=== PATIENT | female | born 1975 | race Caucasian/White ===

== ENCOUNTER 2018-09-30 02:50 | Emergency (ER) | payer BC ==
[~2018-09-30] VITALS: Ht 157.5 cm; Wt 99.8 kg
--- OUTSIDE RECORDS SUMMARY | 2018-09-30 02:56 | XMS REPORT | Continuity of Care Document ---
Author Organization Unknown Address Unknown Allergies There is no data. Medications There is no data. Problems Date Dx Coded Attending Type Code Diagnosis Diagnosed By 05/08/2013 ALEX BARCLAY DO V05.3 HEP B (ADULT) DX 05/08/2013 ALEX BARCLAY DO V05.4 VARICELLA DX 05/08/2013 ALEX BARCLAY DO V06.1 TDAP DX 07/15/2015 LULY LOPEZ DO S Ot 625.9 07/15/2015 LISSY LOPEZ DOLINE S Ot 626.9 05/16/2017 LISSY LOPEZ DOLINE S Ot 625.9 FEM GENITAL SYMPTOMS NOS 05/16/2017 LISSY LOPEZ DOLINE S Ot 626.9 MENSTRUAL DISORDER NOS Procedures There is no data. Results There is no data. Encounters ACCT No. Visit Date/Time Discharge Status Pt. Type Provider Facility Loc./Unit Complaint 06/17/19 09/12/2018 10:03:22 09/12/2018 23:59:59 CLS Outpatient [id number] 2017 15:15:00 2017 23:59:59 CLS Preadmit TRAVIS LOPEZ DOQUELINE S [facility] RAD SCREENING [id number] 12/04/2012 14:13:00 12/04/2012 23:59:59 CLS Outpatient TRAVIS LOPEZ DOQUELINE S [facility] RAD PELVIC PAIN,ABN UTERINE BLEEDING [id number] 05/08/2013 09:56:00 05/08/2013 23:59:59 CLS Outpatient ALEX BARCLAY DO
[2018-09-30] MEDS ORDERED: RT-ALBUTEROL/IPRATROPIUM 3 ML (DUONEB) VIAL INH ONE (03:15)
[2018-09-30] MEDS ORDERED: BENZONATATE 100 MG (TESSALON) CAPSULE PO ONE (03:45)
--- NOTE | 2018-09-30 03:48 | ED Cough/URI ---
General Chief Complaint: Cough/Cold/Flu Symptoms Stated Complaint: COUGH, DRAINAGE Nursing Triage Note: Pt complaining of a cough that has gotten worse over the past couple of days. Pt also has nasal drainage Sepsis Screen: No Definite Risk Source: patient Exam Limitations: no limitations History of Present Illness Date Seen by Provider: September 30, 2018 Time Seen by Provider: 03:00 Initial Comments This 43-year-old woman presents to the emergency room with complaints of nonstop worsening cough and shortness of breath. She also has had some posttussive emesis. Symptoms started about 3 weeks ago when she had some sore throat and cough. She started taking a course of steroids and antibiotics but did not finish them because she was feeling better. She stopped taking them about 10 days ago. In recent days she has had increasing cough and postnasal drainage. She used her son's nebulizer with minimal improvement. She continues to smoke. She is afebrile. Allergies and Home Medications Allergies Coded Allergies: No Known Drug Allergies (Unverified , 09/30/18) Home Medications Amoxicillin 500 Mg Capsule, 1,000 MG PO TID Prescribed by: KATIE ROSE on 09/30/18 0349 Benzonatate 200 Mg Capsule, 200 MG PO TID Prescribed by: KATIE ROSE on 09/30/18 0349 Fluticasone Propionate 9.9 Ml [place].susp, 2 SPRAY NSEACH BID 2 SPRAYS PER NOSTRIL DAILY X 2 DAYS THEN 1 SPRAY DAILY Prescribed by: KATIE ROSE on 09/30/18 0349 Prednisone 20 Mg Tab, 20 MG PO BID Prescribed by: KATIE ROSE on 09/30/18 0349 Patient Home Medication List Home Medication List Reviewed: Yes Review of Systems Review of Systems Constitutional: no symptoms reported EENTM: see HPI Respiratory: see HPI Cardiovascular: no symptoms reported Gastrointestinal: see HPI : No Musculoskeletal: no symptoms reported Skin: no symptoms reported Psychiatric/Neurological: No Symptoms Reported Hematologic/Lymphatic: No Symptoms Reported Past Cxyiazz-Hzkxzf-Mcewpc Hx Past Med/Social Hx: Reviewed Nursing Past Med/Soc Hx Patient Social History Alcohol Use: Denies Use Recreational Drug Use: No Smoking Status: Current Everyday Smoker 2nd Hand Smoke Exposure: No Recent Foreign Travel: No Contact w/Someone Who Travel: No Recent Infectious Disease Expo: No Recent Hopitalizations: No Seasonal Allergies Seasonal Allergies: No Past Medical History Surgeries: No Respiratory: No Cardiac: No Neurological: No Genitourinary: No Gastrointestinal: No Musculoskeletal: No Endocrine: No HEENT: No Cancer: No Psychosocial: No Integumentary: No Blood Disorders: No Physical Exam Vital Signs - First Documented 09/30/18 02:58 Temp 97.0 Pulse 97 Resp 18 B/P (MAP) 138/84 (102) Pulse Ox 99 O2 Delivery Room Air Capillary Refill : Less Than 3 Seconds Height: 5'2.00" Weight: 220lbs. oz. 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, no motor/sensory deficits, alert, normal mood/affect, oriented x 3 Skin: normal color, warm/dry Progress/Results/Core Measures Suspected Sepsis Recent Fever Within 48 Hours: No Infection Criteria Present: Suspected New Infection New/Unexplained Altered Menta: No Sepsis Screen: No Definite Risk SIRS Temperature:97.0 Pulse: 97 Respiratory Rate: 18 Blood Pressure 138 /84 Mean: 102 Results/Orders My Orders Orders - KATIE MATIAS MD Albuterol/Ipra Inhalation Soln (Duoneb I (09/30/18 03:15) Svn Small Volume Nebulizer (09/30/18 03:06) Benzonatate Capsule (Tessalon Perles) (09/30/18 03:45) Medications Given in ED Current Medications Medications Dose Ordered Sig/Crystal Route Start Time Stop Time Status Last Admin Dose Admin Albuterol/ Ipratropium 3 ml ONCE ONCE INH 09/30/18 03:15 09/30/18 03:16 DC 09/30/18 03:14 3 ML Benzonatate 200 mg ONCE ONCE PO 09/30/18 03:45 09/30/18 03:46 DC 09/30/18 03:45 200 MG Vital Signs/I&O 5/09/30/18 09/30/18 02:58 03:15 04:00 Temp 97.0 Pulse 97 97 Resp 18 18 B/P (MAP) 138/84 (102) 138/84 (102) Pulse Ox 99 98 99 O2 Delivery Room Air Room Air Room Air Capillary Refill : Less Than 3 Seconds Blood Pressure Mean: 102 Progress Note : Progress Note Patient still had significant cough after nebulizer treatment. She was given a dose of Tessalon Perles and prescriptions. I recommended that she discontinue smoking. See discharge instructions. Departure Impression Primary Impression: Cough Additional Impression: Post-nasal drainage Disposition: HOME, SELF-CARE Condition: Improved Departure-Patient Inst. Decision time for Depature: 03:43 Referrals: LULY LOPEZ DO (PCP/Family) Primary Care Physician Patient Instructions: Sinusitis, Adult (DC) Add. Discharge Instructions: Stop smoking immediately and completely. Do not substitute with vapor products. Please seek assistance from your primary care provider if you're not able to quit smoking on your own. Complete the antibiotics you have at home and then start the new prescription provided today. Complete the 4 days of prednisone and continue with the nasal steroid spray continuously for the next several weeks. Follow-up with your primary care provider in about a week. Return to care if you have worsening symptoms. If the cough suppressant (Tessalon Perles) worked well for you after your ER visit, fill the prescription provided. You may use upyy-zas-nqqwgpa antihistamine such as Claritin (loratadine) or Zyrtec (cetirizine) for allergy symptoms such as runny nose, no watery and itchy eyes, sneezing, etc. All discharge instructions reviewed with patient and/or family. Voiced understanding. Scripts Fluticasone Propionate (Flonase Allergy Relief) 9.9 Ml Mood[place].susp 2 SPRAY NSEACH BID, #1 EACH 1 Refill 2 SPRAYS PER NOSTRIL DAILY X 2 DAYS THEN 1 SPRAY DAILY Prov: KATIE MATIAS MD 09/30/18 Amoxicillin (Amoxicillin) 500 Mg Capsule 1000 MG PO TID, #42 CAP 0 Refills Prov: KATIE MATIAS MD 09/30/18 Prednisone (Prednisone) 20 Mg Tab 20 MG PO BID, #8 TAB 0 Refills Prov: KATIE MATIAS MD 09/30/18 Benzonatate (Benzonatate) 200 Mg Capsule 200 MG PO TID, #20 CAP Prov: KATIE MATIAS MD 09/30/18 Copy Copies To 1: LUYL LOPEZ JOSHUA T MD September 30, 2018 03:48
[2018-09-30] MEDS ORDERED: FLUT9.9S NSEACH (03:49)
[2018-09-30] MEDS ORDERED: BENZ200C51 PO (03:49)
[2018-09-30] MEDS ORDERED: PRD20T PO (03:49)
[2018-09-30] MEDS ORDERED: AMOX500C2 PO (03:49)
[2018-09-30 04:00] VITALS: BP 138/84
== END 2018-09-30 04:01 | disposition home or self-care (01) ==
LOC: EDUNIT# 02:50 → ER 02:53
DX: R05 Cough (principal); R09.82 Postnasal drip; F17.200 Nicotine dependence, unspecified, uncomplicated; Z79.52 Long term (current) use of systemic steroids; Z79.51 Long term (current) use of inhaled steroids
CPT/HCPCS: 94640

== ENCOUNTER 2020-08-03 19:56 | Emergency (ER) | payer OTHER ==
[~2020-08-03 19:56] MED LIST: AMOX500C2 PO; BENZ200C51 PO; FLUT9.9S NSEACH; PRD20T PO
[2020-08-03] MEDS ORDERED: ACETAMINOPHEN 325 MG TABLET PO STA (20:27)
[2020-08-03 20:32] LABS: BILIRUBIN,URINE NEGATIVE (NEGATIVE); CLARITY,URINE CLEAR; COLOR,URINE YELLOW; GLUCOSE, URINE (UA) NEGATIVE (NEGATIVE); KETONES,URINE 2+ (NEGATIVE); LEUKOCYTE ESTERASE ,URINE NEGATIVE (NEGATIVE); NITRITE,URINE NEGATIVE (NEGATIVE); PROTEIN,URINE NEGATIVE (NEGATIVE)
[2020-08-03] MEDS ORDERED: CYCLOBENZAPRINE 10 MG (FLEXERIL) TAB PO STA (20:38)
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
[2020-08-03 20:48] LABS: BACTERIA,URINE TRACE /HPF
[2020-08-03 20:51] LABS: AMORPHOUS SEDIMENT,UR FEW AMOR URATES /LPF; RBC,URINE 0-2 /HPF; WBC,URINE 0-2 /HPF
[2020-08-03] MEDS ORDERED: CYCLOBENZAPRINE 10 MG (FLEXERIL) TAB ONE (20:57)
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
[2020-08-03 22:28] VITALS: BP 166/100
== END 2020-08-03 22:30 | disposition home or self-care (01) ==
LOC: EDUNIT# 19:56 → ER 19:58
DX: S06.0X0A Concussion without loss of consciousness, initial encounter (principal); S33.5XXA Sprain of ligaments of lumbar spine, initial encounter; S63.501A Unspecified sprain of right wrist, initial encounter; S80.01XA Contusion of right knee, initial encounter; M25.571 Pain in right ankle and joints of right foot; M54.2 Cervicalgia; R40.2360 Coma scale, best motor response, obeys commands, unspecified time; R40.2140 Coma scale, eyes open, spontaneous, unspecified time; R40.2250 Coma scale, best verbal response, oriented, unspecified time; Z79.51 Long term (current) use of inhaled steroids; Z79.52 Long term (current) use of systemic steroids; V49.40XA Driver injured in collision with unspecified motor vehicles in traffic accident, initial encounter
CPT/HCPCS: 70450; 72125; 73562; 73700; 81000; 84703

== ENCOUNTER → 2020-08-09 | Outpatient (CLI) | payer OTHER ==
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
== END ==
LOC: RAD 16:38
PROVIDERS: ATTEND Family Medicine
DX: M25.571 Pain in right ankle and joints of right foot (principal); M25.531 Pain in right wrist
CPT/HCPCS: 73110; 73610

== ENCOUNTER 2020-09-18 12:48 | Emergency (ER) | payer SELFPAY ==
[~2020-09-18] VITALS: Ht 157.4 cm; Wt 100.0 kg
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
[2020-09-18 13:25] LABS: BASOPHILS # (AUTO) 0.1 10^3/uL (0.0-0.1); BASOPHILS % (AUTO) 1 % (0-10); EOSINOPHILS # (AUTO) 0.2 10^3/uL (0.0-0.3); EOSINOPHILS % (AUTO) 3 % (0-10); HEMATOCRIT 40 % (35-52); HEMOGLOBIN 13.6 g/dL (11.5-16.0); LYMPHOCYTES # (AUTO) 1.4 10^3/uL (1.0-4.0); LYMPHOCYTES % (AUTO) 23 % (12-44); MEAN CORPUSCULAR HEMOGLOBIN 33 pg (25-34); MEAN CORPUSCULAR HGB CONC 34 g/dL (32-36); MEAN CORPUSCULAR VOLUME 96 fL (80-99); MEAN PLATELET VOLUME 10.2 fL (9.0-12.2); MONOCYTES # (AUTO) 0.6 10^3/uL (0.0-1.0); MONOCYTES % (AUTO) 10 % (0-12); NEUTROPHILS # (AUTO) 3.9 10^3/uL (1.8-7.8); NEUTROPHILS % (AUTO) 63 % (42-75); PLATELET COUNT 228 10^3/uL (130-400); WHITE BLOOD COUNT 6.1 10^3/uL (4.3-11.0)
[2020-09-18 14:06] VITALS: BP 116/66
== END 2020-09-18 14:05 | disposition home or self-care (01) ==
LOC: EDUNIT# 12:48 → ER 12:51
DX: O20.0 Threatened abortion (principal); O99.331 Smoking (tobacco) complicating pregnancy, first trimester; F17.200 Nicotine dependence, unspecified, uncomplicated; Z3A.09 9 weeks gestation of pregnancy
CPT/HCPCS: 36415; 84702; 85025; 86900; 86901

== ENCOUNTER → 2020-09-19 | Outpatient (CLI) | payer SELFPAY ==
--- NOTE | 2020-09-19 11:51 | Diagnostic Imaging Report ---
PROCEDURE: US OB SINGLE FETUS <14 WKS. TECHNIQUE: Multiple real-time grayscale images were obtained over the gravid uterus in various projections. INDICATION: Abdominal cramping and vaginal bleeding. Uterus measures 3.1 x 2.2 x 1.9 cm. Endometrium is thickened measuring 2.6 cm per. There is marked heterogeneity to the endometrium, likely containing blood products. No intrauterine gestational sac is present. Right ovary measures 1.8 x 2.1 x 2.7 cm and left ovary measures 3.1 x 2.2 x 1.9 cm. Both ovaries demonstrate blood flow. No adnexal mass or free fluid is detected. IMPRESSION: Abnormally thickened and heterogeneous endometrium, likely containing blood products. In a patient with positive test, features are most consistent with spontaneous . No intrauterine or ectopic is identified. Dictated by: Dictated on workstation # [id number]
== END ==
LOC: RAD 10:30
PROVIDERS: ATTEND Nurse Practitioner Family
DX: N93.9 Abnormal uterine and vaginal bleeding, unspecified (principal); R93.89 Abnormal findings on diagnostic imaging of other specified body structures
CPT/HCPCS: 76801

== ENCOUNTER → 2022-02-06 | Outpatient (CLI) | payer BC ==
--- NOTE | 2022-02-06 12:57 | Diagnostic Imaging Report ---
Indication: Routine screening. No prior mammograms are available for comparison. 2-D and 3-D bilateral screening mammography was performed with CAD. CAD is utilized. The current study was also evaluated with a Computer Aided Detection (CAD) system. Both breasts are heterogeneously dense, limiting the sensitivity of mammography. There is a density on the CC view in the central left breast which appears somewhat prominent. Architectural distortion cannot be entirely excluded. No definite correlate on the MLO view is seen. The right breast is unremarkable. No malignant-appearing microcalcifications are seen. IMPRESSION: BI-RADS 0 Left breast density and questionable architectural distortion. Additional views recommended for further evaluation. ACR BI-RADS Category 0: Incomplete. (Needs additional imaging evaluation). Result letter will be mailed to the patient. Note: At least 10% of breast cancer is not imaged by mammography. Dictated by: Dictated on workstation # [id number]
--- NOTE | 2022-02-06 16:14 | Diagnostic Imaging Report ---
PROCEDURE: Pelvic comp/transvaginal sonogram. TECHNIQUE: Complete transabdominal and transvaginal pelvic ultrasound was performed. In addition, limited pelvic Doppler was performed. INDICATION: Abnormal uterine bleeding. FINDINGS: Uterus is anteverted measuring 8.0 x 4.6 x 5.2 cm. Endometrium is 13 mm in thickness. No myometrial mass is detected. Right ovary measures 2.6 x 1.7 x 2.2 cm and the left ovary measures 2.1 x 1.5 x 1.8 cm. Ovaries contain small follicles. There is no adnexal mass or free fluid detected. IMPRESSION: Unremarkable transabdominal and transvaginal pelvic ultrasound with limited pelvic Doppler. Dictated by: Dictated on workstation # [id number]
== END ==
LOC: RAD 10:30
PROVIDERS: ATTEND Family Medicine
DX: Z12.31 Encounter for screening mammogram for malignant neoplasm of breast (principal); N93.9 Abnormal uterine and vaginal bleeding, unspecified
CPT/HCPCS: 76830; 76856; 77063; 77067

== ENCOUNTER → 2022-05-04 | Outpatient (CLI) | payer BC ==
--- NOTE | 2022-05-04 14:39 | Diagnostic Imaging Report ---
Indication: Left breast density. Patient presents for additional views. Correlation is made with screening study from 02/06/2022. Unilateral left 2-D and 3-D diagnostic mammography was performed with CAD. This included spot compression CC, rolled CC as well as conventional 90 degree lateral views. Additional views fail to demonstrate a discrete mass. The density noted on the screening study most likely represents superimposed tissue. No suspicious microcalcifications are seen. IMPRESSION: BI-RADS Category 1. Additional views fail to demonstrate a discrete mass. The patient may return to routine annual screening mammography. ACR BI-RADS Category 1: Negative. Result letter will be mailed to the patient. Note: At least 10% of breast cancer is not imaged by mammography. Dictated by: Dictated on workstation # [id number]
== END ==
LOC: RAD 13:00
PROVIDERS: ATTEND Family Medicine
DX: R92.2 Inconclusive mammogram (principal)
CPT/HCPCS: 77065; G0279